=== PATIENT | male | born 1945 | race Caucasian/White ===

== ENCOUNTER 2017-05-28 17:21 | Outpatient (RCR) | payer OTHER ==
[~2017-05-28 17:21] MED LIST: PROAIR HFA8.5 GM INH; QUETIAPINE FUMA25 MG ORAL
== END 2017-05-31 | disposition home or self-care (01) ==
LOC: PTY 17:21
DX: S76.211D Strain of adductor muscle, fascia and tendon of right thigh, subsequent encounter (principal)

== ENCOUNTER → 2017-07-01 | Outpatient (RCR) | payer OTHER | END | disposition home or self-care (01) | LOC: PTY 06-04 13:00 | DX: S76.211D Strain of adductor muscle, fascia and tendon of right thigh, subsequent encounter (principal) ==

== ENCOUNTER 2017-09-21 16:00 | Outpatient (RCR) | payer OTHER | END 2017-09-28 | disposition home or self-care (01) | LOC: PTY 16:00 | DX: S76.211D Strain of adductor muscle, fascia and tendon of right thigh, subsequent encounter (principal) ==

== ENCOUNTER 2017-10-06 16:00 | Outpatient (RCR) | payer OTHER | END 2017-10-29 | disposition home or self-care (01) | LOC: PTY 16:00 | DX: S76.211D Strain of adductor muscle, fascia and tendon of right thigh, subsequent encounter (principal); X58.XXXD Exposure to other specified factors, subsequent encounter ==

== ENCOUNTER 2017-11-04 15:05 | Outpatient (RCR) | payer OTHER | END 2017-11-28 | disposition home or self-care (01) | LOC: PTY 15:05 | DX: S76.211D Strain of adductor muscle, fascia and tendon of right thigh, subsequent encounter (principal); X58.XXXD Exposure to other specified factors, subsequent encounter ==